=== PATIENT | female | born 2000 | race Caucasian/White ===

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

== ENCOUNTER 2021-05-16 12:45 | Outpatient (CLI) | payer OTHER ==
[2021-05-16 13:23] LABS: BASOPHILS % (AUTO) 0.6 % (0.0-2.0); EOSINOPHILS % (AUTO) 0.5 % (0.0-4.0); HEMOGLOBIN 12.3 g/dL (12.0-16.0); LYMPHOCYTES # (AUTO) 2.4 K/uL (1.0-5.5); LYMPHOCYTES % (AUTO) 27.8 % (20.5-51.5); MEAN CORPUSCULAR HEMOGLOBIN 29 pg (27-31); MEAN CORPUSCULAR HGB CONC 32 % (32-36); MEAN CORPUSCULAR VOLUME 89 fL (79.0-98.0); MONOCYTES # (AUTO) 0.6 K/uL (0.0-1.0); MONOCYTES % (AUTO) 7.1 % (1.7-9.3); NEUTROPHILS # (AUTO) 5.4 K/uL (1.8-7.7); PLATELET COUNT (AUTO) 257 K/uL (130-430); RED BLOOD CELL COUNT(AUTO) 4.29 MIL/uL (4.2-6.2); RED CELL DISTRIBUTION WIDTH 13.6 % (9.0-15.0); WHITE BLOOD COUNT (AUTO) 8.5 K/uL (4.5-11.0)
[2021-05-16 13:33] LABS: BILIRUBIN,URINE NEGATIVE (NEGATIVE); BLOOD, URINE NEGATIVE (NEGATIVE); CLARITY/URINE CLEAR (CLEAR); COLOR,URINE YELLOW (YELLOW); GLUCOSE,URINE NEGATIVE (NEGATIVE); KETONES,URINE NEGATIVE (NEGATIVE); LEUKOCYTE ESTERASE ,URINE NEGATIVE (NEGATIVE); NITRITE, URINE NEGATIVE (NEGATIVE); PH,URINE 7.5 (5.0-8.0); PROTEIN URINE NEGATIVE (NEGATIVE); UROBILINOGEN,URINE 0.2 (0.2-1.0)
[2021-05-16 13:47] LABS: ALBUMIN 3.9 g/dL (3.4-4.8); CALCIUM 8.8 mg/dL (8.4-11.0); CREATININE 0.63 mg/dL (0.55-1.30); PHOSPHORUS 3.8 mg/dL (2.7-4.5); POTASSIUM 4.5 mmol/L (3.5-5.1); TOTAL BILIRUBIN 0.4 mg/dL (0.0-1.0)
== END 2021-05-16 19:45 | disposition home or self-care (01) ==
LOC: SDS 12:45
PROVIDERS: ATTEND Internal Medicine Nephrology
DX: I10 Essential (primary) hypertension (principal); R80.9 Proteinuria, unspecified; N17.9 Acute kidney failure, unspecified; N20.0 Calculus of kidney
CPT/HCPCS: 36415; 80053; 81003; 82570; 83735; 84100; 84156; 85025

== ENCOUNTER 2022-03-11 11:39 | Outpatient (CLI) | payer OTHER ==
[2022-03-11 13:10] LABS: BASOPHILS % (AUTO) 0.7 % (0.0-2.0); EOSINOPHILS % (AUTO) 0.9 % (0.0-4.0); HEMATOCRIT 41.1 % (36-48); HEMOGLOBIN 13.6 g/dL (12.0-16.0); LYMPHOCYTES # (AUTO) 1.3 K/uL (1.0-5.5); LYMPHOCYTES % (AUTO) 25.8 % (20.5-51.5); MEAN CORPUSCULAR HEMOGLOBIN 30 pg (27-31); MEAN CORPUSCULAR HGB CONC 33 % (32-36); MEAN CORPUSCULAR VOLUME 91 fL (79.0-98.0); MONOCYTES # (AUTO) 0.7 K/uL (0.0-1.0); MONOCYTES % (AUTO) 13.5 % (1.7-9.3); NEUTROPHILS % (AUTO) 59.1 % (40.0-70.0); PLATELET COUNT (AUTO) 199 K/uL (130-430); RED BLOOD CELL COUNT(AUTO) 4.52 MIL/uL (4.2-6.2); RED CELL DISTRIBUTION WIDTH 13.2 % (9.0-15.0)
[2022-03-11 13:52] LABS: BILIRUBIN,URINE NEGATIVE (NEGATIVE); BLOOD, URINE NEGATIVE (NEGATIVE); CLARITY/URINE CLEAR (CLEAR); COLOR,URINE YELLOW (YELLOW); GLUCOSE,URINE NEGATIVE (NEGATIVE); KETONES,URINE NEGATIVE (NEGATIVE); LEUKOCYTE ESTERASE ,URINE NEGATIVE (NEGATIVE); NITRITE, URINE NEGATIVE (NEGATIVE); PH,URINE 6.5 (5.0-8.0); PROTEIN URINE 2+ (NEGATIVE); UROBILINOGEN,URINE 0.2 (0.2-1.0)
[2022-03-11 13:59] LABS: ALBUMIN 3.9 g/dL (3.4-4.8); C-REACTIVE PROTEIN QUANT 3.8 mg/dL (0-0.5); CALCIUM 8.8 mg/dL (8.4-11.0); CREATININE 0.64 mg/dL (0.55-1.30); THYROID STIMULATING HORMONE 1.41 uIu/mL (0.34-4.82); TOTAL BILIRUBIN 0.2 mg/dL (0.0-1.0); TOTAL IRON BIND. CAPACITY 427 ug/dL (250-450)
[2022-03-12 08:06] LABS: FERRITIN 25 ng/mL (15-150); THYROID PEROXIDASE (TPO) AB 13 IU/mL (0-34); TRIIODOTHYRONINE, FREE 2.7 pg/mL (2.0-4.4)
[2022-03-12 09:07] LABS: ANTI NUCLEAR AB WITH REFLEX Negative (Negative)
== END 2022-03-11 19:12 | disposition home or self-care (01) ==
LOC: SLB 11:39
PROVIDERS: ATTEND Pediatrics
DX: L65.9 Nonscarring hair loss, unspecified (principal); J03.00 Acute streptococcal tonsillitis, unspecified; R63.4 Abnormal weight loss
CPT/HCPCS: 36415; 80053; 80061; 81003; 82627; 82728; 83540; 83550; 84439; 84443; 84481; 85025; 86038; 86140; 86376; 86665

== ENCOUNTER 2022-10-23 12:08 | Emergency (ER) | payer OTHER ==
[~2022-10-23] VITALS: Ht 172.7 cm; Wt 61.2 kg
[2022-10-23 13:32] VITALS: BP_SYST 132; PULSE 85; RESP 10; TEMP 97.5; O2SAT 100
[2022-10-23] MEDS ORDERED: ACETAMINOPHEN 325 MG TABLET PO ONE (14:30)
[2022-10-23 14:58] LABS: BASOPHILS % (AUTO) 0.6 % (0.0-2.0); EOSINOPHILS % (AUTO) 0.4 % (0.0-4.0); HEMOGLOBIN 12.4 g/dL (12.0-16.0); LYMPHOCYTES # (AUTO) 1.5 K/uL (1.0-5.5); LYMPHOCYTES % (AUTO) 22.7 % (20.5-51.5); MEAN CORPUSCULAR HEMOGLOBIN 30 pg (27-31); MEAN CORPUSCULAR HGB CONC 33 % (32-36); MEAN CORPUSCULAR VOLUME 92 fL (79.0-98.0); MONOCYTES # (AUTO) 0.7 K/uL (0.0-1.0); MONOCYTES % (AUTO) 10.5 % (1.7-9.3); NEUTROPHILS # (AUTO) 4.4 K/uL (1.8-7.7); NEUTROPHILS % (AUTO) 65.8 % (40.0-70.0); PLATELET COUNT (AUTO) 298 K/uL (130-430); RED BLOOD CELL COUNT(AUTO) 4.14 MIL/uL (4.2-6.2); WHITE BLOOD COUNT (AUTO) 6.8 K/uL (4.5-11.0)
[2022-10-23 15:13] LABS: CALCIUM 8.9 mg/dL (8.4-11.0); CREATININE 0.59 mg/dL (0.55-1.30); POTASSIUM 3.6 mmol/L (3.5-5.1)
[2022-10-23] MEDS ORDERED: IBUP-1968 PO (18:26)
[2022-10-23 18:33] VITALS: BP_SYST 126; PULSE 83; RESP 19; TEMP 97.8; O2SAT 98
== END 2022-10-23 18:34 | disposition home or self-care (01) ==
LOC: SED 12:08
DX: M79.602 Pain in left arm (principal); N64.4 Mastodynia; F17.210 Nicotine dependence, cigarettes, uncomplicated; Z88.4 Allergy status to anesthetic agent; Z79.899 Other long term (current) drug therapy
CPT/HCPCS: 36415; 71045; 80048; 81025; 85025; 99284

== ENCOUNTER 2022-11-20 13:35 | Outpatient (CLI) | payer OTHER ==
[~2022-11-20 13:35] MED LIST: IBUP-1968 PO
[2022-11-20 14:22] LABS: BILIRUBIN,URINE NEGATIVE (NEGATIVE); BLOOD, URINE 3+ (NEGATIVE); CLARITY/URINE CLEAR (CLEAR); COLOR,URINE YELLOW (YELLOW); GLUCOSE,URINE NEGATIVE (NEGATIVE); KETONES,URINE 1+ (NEGATIVE); NITRITE, URINE NEGATIVE (NEGATIVE); PROTEIN URINE 1+ (NEGATIVE); UROBILINOGEN,URINE 0.2 (0.2-1.0)
[2022-11-20 14:29] LABS: BASOPHILS # (AUTO) 0.1 K/uL (0.0-0.2); BASOPHILS % (AUTO) 0.6 % (0.0-2.0); EOSINOPHILS % (AUTO) 0.1 % (0.0-4.0); HEMATOCRIT 39.7 % (36-48); HEMOGLOBIN 13.5 g/dL (12.0-16.0); LYMPHOCYTES # (AUTO) 1.3 K/uL (1.0-5.5); LYMPHOCYTES % (AUTO) 14.7 % (20.5-51.5); MEAN CORPUSCULAR HEMOGLOBIN 31 pg (27-31); MEAN CORPUSCULAR HGB CONC 34 % (32-36); MEAN CORPUSCULAR VOLUME 91 fL (79.0-98.0); MONOCYTES # (AUTO) 0.7 K/uL (0.0-1.0); MONOCYTES % (AUTO) 7.7 % (1.7-9.3); NEUTROPHILS # (AUTO) 6.9 K/uL (1.8-7.7); NEUTROPHILS % (AUTO) 76.9 % (40.0-70.0); PLATELET COUNT (AUTO) 313 K/uL (130-430); RED BLOOD CELL COUNT(AUTO) 4.38 MIL/uL (4.2-6.2)
[2022-11-20 14:31] LABS: ERYTHROCYTE SEDIMENTATION RATE < 1 MM/HR (0-20)
[2022-11-20 14:34] LABS: LEUKOCYTE ESTERASE ,URINE TRACE (NEGATIVE)
[2022-11-20 14:36] LABS: BACTERIA,URINE FEW /HPF (None Seen); MUCUS,URINE None Seen /LPF (None Seen)
[2022-11-20 14:53] LABS: ALBUMIN 4.5 g/dL (3.4-4.8); CALCIUM 9.3 mg/dL (8.4-11.0); CREATININE 0.68 mg/dL (0.55-1.30); THYROID STIMULATING HORMONE 0.92 uIu/mL (0.34-4.82); TOTAL BILIRUBIN 1.2 mg/dL (0.0-1.0); TOTAL PROTEIN, SERUM 7.7 g/dL (6.4-8.3); URIC ACID 4.2 mg/dL (2.4-7.0)
[2022-11-20 14:57] LABS: HEMOGLOBIN A1C 4.64 % (<5.7)
== END 2022-11-20 18:58 | disposition home or self-care (01) ==
LOC: SLB 13:35
PROVIDERS: ATTEND Internal Medicine
DX: Z00.01 Encounter for general adult medical examination with abnormal findings (principal); E55.9 Vitamin D deficiency, unspecified; E56.9 Vitamin deficiency, unspecified; E78.5 Hyperlipidemia, unspecified; M13.0 Polyarthritis, unspecified
CPT/HCPCS: 36415; 80053; 80061; 81000; 82306; 82607; 83037; 83735; 84443; 84550; 85025; 85651-TC

== ENCOUNTER 2022-12-07 11:17 | Outpatient (CLI) | payer OTHER | END 2022-12-07 21:02 | disposition home or self-care (01) | LOC: SLB 11:17 | PROVIDERS: ATTEND Specialist | DX: L70.0 Acne vulgaris (principal) | CPT/HCPCS: 36415; 84132 ==